=== PATIENT | male | born 2005 | race Caucasian/White ===

== ENCOUNTER 2024-02-18 13:04 | Emergency (ER) | payer BC, SELFPAY ==
[2024-02-18 13:11] VITALS: BP 154/81; PULSE 103; RESP 18; TEMP 36.8; O2SAT 99
--- NOTE | 2024-02-18 14:21 | ED.EAR ---
HPI - Ear Problem General Chief complaint: Ear Stated complaint: Ear Pain Time Seen by Provider: 02/18/24 14:21 Source: patient, RN notes reviewed and old records reviewed Mode of arrival: ambulatory Limitations: no limitations History of Present Illness HPI Narrative: 18-year-old male presents to the [facility] with complaints of bilateral ear pain for approximately 1 week. No treatment prior to arrival. Patient reports that the left ear is more painful than the right. Has a history ear infection Treatment prior to arrival: none Related Data Allergies Allergy/AdvReac Type Severity Reaction Status Date / Time No Known Allergies Allergy Verified 02/18/24 13:16 Review of Systems Review of Systems: All systems reviewed & are unremarkable except as noted in HPI and below Constitutional: Constitutional: Reports no additional constitutional complaints Eyes: Eyes: Reports no additional eye complaints ENT: Reports as per HPI and Reports otalgia Cardiovascular: Cardiovascular: Reports no additional cardiovascular complaints, Denies chest pain and Denies dyspnea Respiratory: Respiratory: Reports no additional respiratory complaints, Denies chest congestion, Denies cough and Denies dyspnea Gastrointestinal: Gastrointestinal: Reports no additional gastrointestinal complaints, Denies abdominal pain, Denies nausea and Denies vomiting Musculoskeletal: Musculoskeletal: Reports no additional musculoskeletal complaints Integumentary/Breasts: Skin/Breast: Reports system reviewed and no additional complaints, except as docu Neurologic: Reports system reviewed and no additional complaints, except as documented Psychiatric: Psychiatric: Reports no additional psychiatric complaints Allergic/Immunologic: Allergic/Immunologic: Reports no additional allergic/immunologic complaints PMFSH Comments At the time of my signature, I reviewed and agree with the nursing past medical, surgical, social, and family history. There is no relevant family history pertinent to the patient complaint. Exam Const: General: cooperative, healthy appearing, comfortable, no acute distress, well developed, alert and well nourished Nutritional Appearance: well nourished Orientation/consciousness: patient oriented x3 Limitations: no limitations HENMT: Head: normal to inspection Ears: hearing grossly normal bilaterally, external ears normal, EAC's normal and TM abnormal bulging bilateral, wth effusion serous on the left and erythematous on the left Face/Nose/Sinus: Normal external nose present, Normal nares present, Normal nasal mucous membranes and turbinates present, normal facial exam and face symmetric Face and sinus: normal facial exam and face symmetric Mouth: Yes Normal oral and palatal mucosa present, Yes lip normal and Yes moist mucous membranes Throat: posterior oropharynx normal and uvula midline Eyes: General: appearance normal, both eyes and all related structures Alignment and Position: alignment normal Periorbital: periorbital findings normal Pupils: Equal, round and reactive pupils present EOM: EOMs intact bilaterally Neck: Neck: normal visual inspection, full ROM, no lymphadenopathy and no meningeal signs Chest: Chest palpation & inspection: normal inspection of the chest Resp: Effort & Inspection: normal respiratory effort and able to speak in complete sentences Auscultation: clear to auscultation bilaterally, no crackles, no rales, no rhonchi and no wheezes Cardio: Rate: regular rate Rhythm: regular rhythm Skin: General skin exam: normal color and no rashes or lesions noted Lesions: no lesions Rashes: no rashes Wounds: no wounds Neuro: General: patient oriented x3, gait normal, tone normal, moves all extremities and no meningeal signs Cranial nerves: Yes Equal, round and reactive pupils present Cognition (Neuro): normal cognition Speech: normal speech Gait exam (Neuro): Normal gait present Extrem: General: normal to inspection,
== END 2024-02-18 14:35 | disposition home or self-care (01) ==
PROVIDERS: Emergency Provider Nurse Practitioner; PCP Hospitalist
DX: H66.92 Otitis media, unspecified, left ear (principal)
CPT/HCPCS: 99213; G0463

== ENCOUNTER 2025-03-05 21:56 | Emergency (ER) | payer SELFPAY ==
--- OUTSIDE RECORDS SUMMARY | 2025-03-05 21:59 | XMS_ITS | Clinical Summary ---
Author Organization [facility] [address] [facility] lt Address [address] [place] [address] Care Team Providers Care Brand Leader Name Role Phone Khris Luis MD Primary Care Provider [phone] Allergies No known active allergies Medications No known medications Active Problems Problem Noted Date Diagnosed Date Digestive problems 06/29/2023 Assessment & Plan (06/29/2023 11:21 AM CDT): Patient states he has been having a few month history of having to immediately go to the restroom after eating He denies diarrhea, he states it does not matter what he eats he still has this problem Referral to GI placed Class 2 obesity due to exces s calories without serious comorbidity with body mass index (BMI) of 35.0 to 35.9 in adult 10/27/2022 Assessment & Plan (10/27/2022 4:03 PM PRIVATE EYE): Stable, improving; patient is working on dietary changes, decreasing meals and working on intermittent fasting Not on any specific diet plan decides intermittent fasting Plans to start exercising next month; goal is to work on weight loss and achieve target weight Continue to encourage dietary and activity changes Immunizations Immunization Administration Dates Next Due DTaP, Unspecified 05/02/2009, 5,03/21/2004,01/18/2004, 2003 HPV, Quadrivalent 09/24/2015,06/18/2015 HPV9 05/04/2016 Hep A, Unspecified 06/03/2018,06/18/2015 Hep B, Unspecified 03/21/2004,2003, 003 HiB 12/19/2004,03/21/2004,01/18/2004 ,2003 Influenza, Unspecified 06/29/2023(Deferr ed: Patient Refused),10/23/2022(Deferred: Patient Refused),06/25/2022(Deferred: Patient Refused),06/04/2022(Deferred: Patient Refused) MMR 05/02/2009,09/19/2004 Meningococcal MCV4P (Menactra) 06/18/2015 Pneumococcal Conjugate 7-Valent 12/19/2004,09/19,01/18/2004,2003 Polio, Unspecified 05/02/2009,12/19/2004, 004,2003 Tdap 06/18/2015 Varicella 05/02/2009,09/19/2004 Social History Tobacco Use Types Packs/Day Years Used Date Smoking Tobacco: Never Smokeless Tobacco: Never Tobacco Cessation:Counseling Given: Not Answered AUDIT-C Answer Date Recorded Q1: How often do you have a drink containing alcohol? Never 10/23/2022 Q2: How many drinks containi ng alcohol do you have on a typical day when you are drinking? Patient does not drink Q3: How often do you have si x or more drinks on one occasion? Never 10/23/2022 PHQ-2 Answer Date Recorded PHQ-2 Total Score (If total score is 3 or more points, staff should administer the PHQ-9) 0 06/29/2023 Personal Safety Answer Date Recorded Getting School Help Needed Not on file 09/27 Sex and Gender Information Value Date Recorded Sex Assigned at Not on file Legal Sex Male 1:47 PM CDT Gender Identity Not on file Sexual Orientation Not on file Obstetrics History Last Filed Vital Signs Vital Sign Reading Time Taken Comments Blood Pressure 112/74 06/29/2023 10:49 AM CDT Pulse 101 06/29/2023 10:49 AM CDT Temperature 36.7 C (98 F) 06/29/2023 10:49 AM CDT Respiratory Rate 16 06/29/2023 10:4 9 AM CDT Oxygen Saturation 97% 06/29/2023 10: 49 AM CDT Inhaled Oxygen Concentration - - Weight 116.2 kg (256 lb 3.2 oz) 023 10:49 AM CDT Height 188 cm (6' 2) 06/29/2023 10:49 AM CDT Body Mass Index 32.89 06/29/2023 10:49 AM CDT Plan of Treatment Health Maintenance Due Date Last Done Comments Hepatitis C Screening 2003 Meningococcal B Vaccine (1 of 2 - Standard) 2019 Regular Well Visit/Exam 18-64 10/23/2023 10/23/2022 Covid-19 Vaccine ( season) 2024 09/22/2021, 02/06/2021, 01/16/2021 Depression Screening 06/29/2024 06/29/2023, 10/23/19 23 Influenza Vaccine (Season Ended) 2025 DTaP/Tdap/Td Vaccine (7 - Td or Tdap) 06/18/2025 06/18/2015, 05/02/2009, 12/19/2004, Additional history exists Hepatitis B Screening Completed 03/21/2004 , 2003, 2003 Pneumococcal vaccine <65 Completed 005, 09/19/2004, 01/18/2004, Additional history exists Varicella Vaccines Completed 05/02/2009, 09/19/2004 Meningococcal Vaccine Aged Out 06/18/2015 No jeffrey elliott eligible based on patient's age to complete this topic HPV Vaccines Completed 05/04/2016, 09/04, 06/18/2015 Insurance [facility] Care Teams Brand Leader Relationship Specialty Start Date End Date Khris Luis MD [address] [place] [address] PCP - General Family Medicine 10/22/22
--- OUTSIDE RECORDS SUMMARY | 2025-03-05 21:59 | XMS_ITS | Referral Summary ---
Author Organization [facility] [place] [address] [facility] lto Address [address] [place] [address] Care Team Providers Care Inspector Raw Quartz Name Role Phone Khris Luis MD Primary Care Provider [phone] [phone] Allergies No known active allergies Medications No [...] 10/27/2022 Assessment & Plan (10/27/2022 4:03 PM CUPROUS CHLORIDE OPERATOR): Stable, improving; patient is working on dietary [...] on file Sexual Orientation Not on file Last Filed Vital Signs Vital Sign Reading [...] 06/29/2023 10:49 AM CDT Plan of Treatment Not on file Insurance [employer] [place] [employer] [place] Care Teams Inspector Raw Quartz Relationship Specialty Start Date End [place] [address] PCP - General Family Medicine 10/22/22
[2025-03-05 22:17] VITALS: BP 129/73; PULSE 66; RESP 17; TEMP 36.5; O2SAT 99
[2025-03-05 22:40] LABS: Basophils Absolute Auto 0.1 K/mm3 (0.0-0.1); Basophils Percent Auto 0.4 % (0.2-1.2); Eosinophils Absolute Auto 0.1 K/mm3 (0-0.3); Eosinophils Percent Auto 0.9 % (0-4.4); Hematocrit 45.2 % (42.0-52.0); Immature Granulocyte Absolute 0.05 K/mm3 (0.00-0.031); Immature Granulocyte Percent A 0.4 % (0-0.5); Lymphocytes Percent Auto 12.3 % (18.3-44.2); Mean Corpuscular HGB Conc 33.2 g/dl (32-36); Mean Corpuscular Hemoglobin 28.6 pg (26-34); Mean Corpuscular Volume 86.3 fl (80-100); Mean Platelet Volume 11.4 fl (7.4-10.4); Monocytes Percent Auto 7.4 % (2.6-8.5); Neutrophils Absolute Auto 10.9 K/mm3 (1.3-6.7); Neutrophils Percent Auto 78.6 % (45.5-73.1); Platelet Count Result 237 k/mm3 (150-375); Red Blood Count 5.24 M/mm3 (4.6-6.20); Red Cell Distribution Width 12.5 % (11.5-14.5); White Blood Count 13.8 K/mm3 (4.5-10.0)
[2025-03-05 23:04] LABS: Alanine Aminotransferase 23 U/L (6-50); Albumin Level 4.9 g/dL (3.5-5.1); Alkaline Phosphatase 66 U/L (38-126); Anion Gap 11 mmol/L (4-12); Aspartate Amino Transferase 28 U/L (17-59); Bilirubin,Total 1.2 mg/dL (0.2-1.3); Blood Urea Nitrogen 11 mg/dL (9-20); Calcium 9.5 mg/dL (8.4-10.2); Carbon Dioxide 25 mmol/L (22-30); Chloride 105 mmol/L (98-107); Estimated CRCL calculation 158 ml/min; Estimated Glomerular Filt Rate > 60; Glucose 103 mg/dL (65-110); Lipase 39 U/L (23-300); Potassium 3.8 mmol/L (3.4-5.0); Sodium 141 mmol/L (137-145)
--- NOTE | 2025-03-06 00:58 | PC.NURSE ---
Pt called x1 w no response.
--- NOTE | 2025-03-06 01:07 | PC.NURSE ---
Pt called x2 w no response. Pt marked as LWBS triaged on dispo and tracker.
--- OUTSIDE RECORDS SUMMARY | 2025-03-06 01:11 | XMS_ITS | Clinical Summary ---
Author Organization [facility] [place] [address] [facility] lt Address [address] [place] [address] Care Team Providers Care Nuclear Powerplant Mechanic Name Role Phone Khris Luis MD Primary Care Provider [phone] [phone] Allergies No known active allergies Medications No [...] 10/27/2022 Assessment & Plan (10/27/2022 4:03 PM PERIODICALS LIBRARY ASSISTANT): Stable, improving; patient is working on dietary [...] HPV Vaccines Completed 05/04/2016, 09/04, 06/18/2015 Insurance [facility] Care Teams Nuclear Powerplant Mechanic Relationship Specialty Start Date End Date Khris Luis MD [address] [place] [address] PCP - General Family Medicine 10/22/22
--- OUTSIDE RECORDS SUMMARY | 2025-03-06 01:11 | XMS_ITS | Referral Summary ---
Author Organization [facility] [place] [address] [facility] lto Address [address] [place] [address] Care Team Providers Care Machine Molder Squeeze Name Role Phone Khris Luis MD Primary Care Provider [phone] [phone] Allergies No known active allergies Medications No [...] 10/27/2022 Assessment & Plan (10/27/2022 4:03 PM SQL SERVER CONSULTANT): Stable, improving; patient is working on dietary [...] Plan of Treatment Not on file [place] Care Teams Machine Molder Squeeze Relationship Specialty Start Date End [place] [address] PCP - General Family Medicine 10/22/22
== END 2025-03-06 01:07 | disposition left against medical advice (07) ==
LOC: ANHED 03-06 01:09
PROVIDERS: Emergency Provider Student in an Organized Health Care Education/Training Program; PCP Hospitalist
DX: R10.9 Unspecified abdominal pain (principal)
CPT/HCPCS: 36415; 80053; 83690; 85025; 99199